=== PATIENT | female | born 1935 ===

== ENCOUNTER 2022-10-11 12:43 | Inpatient (IN) | payer MEDICARE, MEDICAID ==
[~2022-10-11] VITALS: Ht 144.8 cm; Wt 45.6 kg
[2022-10-11] VITALS (7 sets, daily range): BP systolic 93–130; BP diastolic 47–81
[2022-10-11] MEDS ORDERED: ONDANSETRON 4 MG/2 ML (SDV) Z0FRAN IVP PRN (13:15)
[2022-10-11] MEDS ORDERED: NITROGLYCERIN 0.4 MG SL TABS BTL 25'S SL PRN (13:15)
[2022-10-11] MEDS ORDERED: morphine INJ 4 MG/ML 1 ML (VIAL/SYRINGE) IV PRN (13:15)
--- NOTE | 2022-10-11 14:35 | History & Physical-Hospitalist ---
History of Present Illness HPI/Chief Complaint Patient is an 86-year-old female with past medical history of hypertension, tobacco abuse, hypothyroidism who presented to outside facility due to chest pain. She is deaf but her daughter is at bedside and interprets for her. She reports that a couple weeks ago she developed some chest pain but last night she had worsening of chest pain that started to radiate down her left arm. She was quite clammy as well throughout the night and just could not rest due to the pain. Family states that she was moaning and groaning throughout most of the night. Daughter tried to take her to the emergency room earlier today but she refused so they called her primary care doctor who recommended going to the emergency room and she was finally amenable to this. She describes it as a tightness and burning in her chest and she was given a GI cocktail and aspirin which helped improve the symptoms. Troponin was checked it was found to be elevated at 4 so she was transferred here for cardiac evaluation. Her only complaint to me now is that she is hungry and would like to eat. Her chest pain has since resolved. Source: patient Exam Limitations: language barrier (deaf) Date Seen 10/11/22 Time Seen by a Provider: 14:30 Attending Physician PCP Admitting Physician: Shirley Connolly MD Attending Physician: Shirley Connolly MD Referring Physician Date of Admission Oct 11, 2022 at 13:55 Home Medications & Allergies Home Medications Reviewed patient Home Medication Reconciliation performed by pharmacy medication reconciliations survey and mapping technician and/or nursing. Patients Allergies have been reviewed. Allergies Allergies Coded Allergies No Known Drug Allergies (Unverified10/11/22) Review of Systems Constitutional: see HPI Physical Exam Physical Exam Vital Signs Vital Signs - First Documented 10/11/22 10/12/22 14:00 00:08 Temp 36.5 Pulse 77 Resp 20 B/P (MAP) 130/81 (97) Pulse Ox 98 O2 Delivery Room Air O2 Flow Rate 2.00 Capillary Refill : Height, Weight, BMI Height: '" Weight: lbs. oz. kg; BMI Method: General Appearance: No Apparent Distress, Thin Respiratory: Lungs Clear, No Accessory Muscle Use Cardiovascular: Regular Rate, Rhythm, No Murmur Gastrointestinal: Normal Bowel Sounds, Non Tender, Soft Extremity: No Calf Tenderness, No Pedal Edema Neurologic/Psychiatric: Alert, Oriented x3, Other (deaf) Results Results/Procedures Labs Laboratory Tests 10/11/22 14:50 10/12/22 04:27 Patient resulted labs reviewed. Assessment/Plan Admission Diagnosis NSTEMI Admission Status: Inpatient Order (span 2 midnights) Reason for Inpatient Admission: see below Assessment and Plan NSTEMI Troponin 4 at outside facility Pain now resolved Cardiology consulted, appreciate recs NPO for potential cath Repeat troponin Monitor on telemetry Received ASA at outside facility HTN BP well controlled, trend hypothyroidism Continue home meds tobacco abuse Recommend cessation Diagnosis/Problems Diagnosis/Problems (1) NSTEMI (non-ST elevated myocardial infarction) SHIRLEY CONNOLLY MD Oct 11, 2022 14:35
[2022-10-11] MEDS ORDERED: LISI40TA9 PO (15:52)
[2022-10-11] MEDS ORDERED: LEVO50CA4 PO (15:52)
[2022-10-11] MEDS ORDERED: ACET325C7 PO (15:52)
--- NOTE | 2022-10-11 15:59 | Consultation-Cardiology ---
HPI-Cardiology Cardiology Consultation: Date of Consultation 10/11/22 Time Seen by a Provider: 15:30 Date of Admission 10-11-22 Attending Physician Admitting Physician Admitting Physician: Denita Connolly MD Attending Physician: Denita Connolly MD Consulting Physician Martell Gonzáles MD HPI: Chief Complaint: NSTEMI Ms. Clarke is an 86 yr old female admitted to [facility] from [facility] [place] She is deaf. Her daughter is at the bedside and is helping to sign in order to communicate with patient. She reports she began to have chest "squeezing" last night that radiated into her left arm. She reports feeling SOB, diaphoretic and generally not feeling well. The discomfort would come and go throughout the night. This morning she told her daughter about her chest pain and they took her to the ED at [facility] [place]. She is currently not reporting any chest pain. No LE swelling. No syncope or near syncope. Review of Systems-Cardiology Review of Systems Constitutional: No chills, No fever, No malaise Eyes: No vision change Ears/Nose/Throat: chronic hearing loss Respiratory: As described under HPI Cardiovascular: As described under HPI Gastrointestinal: constipation; No diarrhea, No nausea, No vomiting Genitourinary: No dysuria Musculoskeletal: no symptoms reported Skin: No rash on exposed areas, No ulcerations on exposed areas Psychiatric/Neurological: No anxiety, No depression, No seizure, No focal weakness, No syncope Hematologic: No bleeding abnormalities [id number]-Ppoghy Hx Patient Social History Smoking Status: Current Everyday Smoker Alcohol Use?: Yes Pt feels they are or have been: No Tobacco type used: Cigarettes Past Medical History PMH As described under Assessment. Family Medical History Family Medical History: She reports her father passed from "heart". Allergies and Home Medications Allergies Coded Allergies: No Allergy Information Available (Unverified , 10/11/22) Patient Home Medication List Acetaminophen (Tylenol) 325 Mg Capsule, 650 MG PO PRN, (Reported) Entered as Reported by: DHARMESH BORJA on 10/11/221551 Last Action: New Order Levothyroxine Sodium (Levothyroxine) 50 Mcg Capsule, 50 MCG PO DAILY, (Reported) Entered as Reported by: DHARMESH BORJA on 10/11/221551 Last Action: New Order Lisinopril (Lisinopril) 40 Mg Tablet, 40 MG PO DAILY, (Reported) Entered as Reported by: DHARMESH BORJA on 10/11/22 [id number] Last Action: New Order Physical Exam-Cardiology Physical Exam Vital Signs/I&O 10/11/22 10/11/22 14:00 14:05 Temp 36.5 Pulse 77 74 Resp 20 B/P (MAP) 130/81 (97) Pulse Ox 98 O2 Delivery Room Air Capillary Refill : Constitutional: AAO x 3, other (thin) HEENT: PERRL, other (deaf) Neck: No carotid bruit; carotid pulses are 2 + bilaterally Respiratory: No accessory muscle use, No respiratory distress; chest expansion is symmetric, chest is bilaterally symmetric, lungs clear to auscultation Cardiovascular: regular rate-rhythm; No JVD; S1 and S2 Gastrointestinal: No tender; soft, audible bowel sounds Extremities: no lower extremity edema bilateral Neurologic/Psychiatric: grossly intact (moves all extremities) Skin: No rash on exposed areas, No ulcerations on exposed areas Data Review Labs Laboratory Tests 10/11/22 14:30: Troponin I 11.474*H A/P-Cardiology Assessment/Admission Diagnosis NSTEMI Chronic deafness HTN Hypothyrodism Tobaccoism - cessation advised Discussion and Recomendations NSTEMI - treat with ASA, Plavix, Lovenox and BB - advise cardiac cath - discussed at length with patient and family (daughter at the bedside interpreting) - discussed procedure, risks, benefits and potential complications of cardiac cath with possible coronary intervention. They verbalize understanding and wish to proceed. We will schedule for tomorrow, sooner if indicated Advise smoking cessation Monitor lab Replace electrolytes as indicated Further recs will be based on her hospital course We would like to thank medical services for this consult JUAN DUFF Oct 11, 2022 15:59
[2022-10-11] MEDS ORDERED: ENOXAPARIN 100 MG/1 ML (LOVENOX) SYR SC SCH (16:00)
[2022-10-11] MEDS ORDERED: ENOXAPARIN 40 MG/0.4 ML (LOVENOX) SYR SC NR (16:15)
[2022-10-11] MEDS ORDERED: CLOPIDOGREL 75 MG (PLAVIX) TABLET PO NR ×2 (16:15→16:30)
[2022-10-11 16:17] LABS: INR 1.1 (0.8-1.4)
[2022-10-11 16:22] LABS: CALCIUM 9.4 MG/DL (8.5-10.1); CREATININE SERUM 0.98 MG/DL (0.60-1.30); POTASSIUM 3.6 MMOL/L (3.6-5.0)
--- NOTE | 2022-10-11 18:52 | Consultation-Cardiology ---
HPI-Cardiology Cardiology Consultation: Date of Consultation 10/11/22 Time Seen by a Provider: 16:30 Date of Admission Attending Physician Admitting Physician Admitting Physician: Denita Connolly MD Attending Physician: Denita Connolly MD Consulting Physician DUYEN DUMONT MD, MA, FACP, FACC, [facility], CCDS Physician requesting consult: Dr Connolly HPI: Chief Complaint: Reason for Card consult: NSTEMI Ms. Clarke is an 86 yr old female admitted to [facility] [place] [facility] [place] She is deaf. Her daughter is at the bedside and is helping to sign in order to communicate with patient. She reports she began to have chest "squeezing" last night that radiated into her left arm. She reports feeling SOB, diaphoretic and generally not feeling well. The discomfort would come and go throughout the night. This morning she told her daughter about her chest pain and they took her to the ED [place] [facility] [place] She is currently not reporting any chest pain. No LE swelling. No syncope or near syncope. Review of Systems-Cardiology Review of Systems Constitutional: No chills, No fever, No malaise Eyes: No vision change Ears/Nose/Throat: chronic hearing loss Respiratory: As described under HPI Cardiovascular: As described under HPI Gastrointestinal: constipation; No diarrhea, No nausea, No vomiting Genitourinary: No dysuria Musculoskeletal: no symptoms reported Skin: No rash on exposed areas, No ulcerations on exposed areas Psychiatric/Neurological: No anxiety, No depression, No seizure, No focal weakness, No syncope Hematologic: No bleeding abnormalities RPM-[id number]-Xhmjuz Hx Patient Social History Smoking Status: Current Everyday Smoker Alcohol Use?: Yes Pt feels they are or have been: No Tobacco type used: Cigarettes Past Medical History PMH As described under Assessment. Family Medical History Family Medical History: She reports her father passed from "heart". Allergies and Home Medications Allergies Coded Allergies: No Allergy Information Available (Unverified , 10/11/22) Patient Home Medication List Home Medication List Reviewed: Yes Acetaminophen (Tylenol) 325 Mg Capsule, 650 MG PO PRN, (Reported) Entered as Reported by: DHARMESH BORJA on 10/11/221551 Last Action: New Order Levothyroxine Sodium (Levothyroxine) 50 Mcg Capsule, 50 MCG PO DAILY, (Reported) Entered as Reported by: DHARMESH BORJA on 10/11/221551 Last Action: New Order Lisinopril (Lisinopril) 40 Mg Tablet, 40 MG PO DAILY, (Reported) Entered as Reported by: DHARMESH BORJA on 10/11/221551 Last Action: New Order Physical Exam-Cardiology Physical Exam Vital Signs/I&O 10/11/22 10/11/22 10/11/22 10/11/22 14:00 14:05 14:10 16:00 Temp 36.5 36.6 Pulse 77 74 72 Resp 20 23 B/P (MAP) 130/81 (97) 121/67 (85) Pulse Ox 98 98 98 O2 Delivery Room Air Room Air Room Air Capillary Refill : Constitutional: AAO x 3, other (thin) HEENT: PERRL, other (deaf) Neck: No carotid bruit; carotid pulses are 2 + bilaterally Respiratory: No accessory muscle use, No respiratory distress; chest expansion is symmetric, chest is bilaterally symmetric, lungs clear to auscultation Cardiovascular: regular rate-rhythm; No JVD; S1 and S2 Gastrointestinal: No tender; soft, audible bowel sounds Extremities: no lower extremity edema bilateral Neurologic/Psychiatric: grossly intact (moves all extremities) Skin: No rash on exposed areas, No ulcerations on exposed areas Data Review Labs Laboratory Tests 10/11/22 14:30: Troponin I 11.474*H 10/11/22 14:50: Prothrombin Time 14.0, INR Comment 1.1, Activated Partial Thromboplast Time 40H, Sodium Level 136, Potassium Level 3.6, Chloride Level 102, Carbon Dioxide Level 24, Anion Gap 10, Blood Urea Nitrogen 15, Creatinine 0.98, Estimat Glomerular Filtration Rate 56, BUN/Creatinine Ratio 15, Glucose Level 87, Calcium Level 9.4 A/P-Cardiology Assessment/Admission Diagnosis NSTEMI Chronic deafness HTN Hypothyrodism Tobaccoism - cessation advised Discussion and Recomendations NSTEMI - treat with ASA, Plavix, Lovenox and BB - advise cardiac cath - discussed at length with patient and family (daughter at the bedside interpreting) - discussed procedure, risks, benefits and potential complications of cardiac cath with possible coronary intervention. They verbalize understanding and wish to proceed. We will schedule for tomorrow, sooner if indicated Advise smoking cessation Monitor lab Replace electrolytes as indicated Further recs will be based on her hospital course We would like to thank medical services for this consult DUYEN DUMONT MD FACP FAC CCDS Oct 11, 2022 18:52
[2022-10-12] VITALS (12 sets, daily range): BP systolic 73–130; BP diastolic 43–63
[2022-10-12 04:58] LABS: HEMATOCRIT 38 % (35-52); HEMOGLOBIN 12.7 g/dL (11.5-16.0); MEAN CORPUSCULAR HEMOGLOBIN 32 pg (25-34); MEAN CORPUSCULAR HGB CONC 33 g/dL (32-36); MEAN CORPUSCULAR VOLUME 96 fL (80-99); MEAN PLATELET VOLUME 9.5 fL (9.0-12.2); PLATELET COUNT 318 10^3/uL (130-400); WHITE BLOOD COUNT 9.4 10^3/uL (4.3-11.0)
[2022-10-12 05:23] LABS: POTASSIUM 3.9 MMOL/L (3.6-5.0)
[2022-10-12 05:24] LABS: CALCIUM 8.9 MG/DL (8.5-10.1)
[2022-10-12 05:29] LABS: CREATININE SERUM 0.92 MG/DL (0.60-1.30)
[2022-10-12] MEDS: NS IV 1000 ML 1,000 ML IV SCH ×3 (05:30→23:45)
[2022-10-12] MEDS ORDERED: NS IV 1000 ML 0 ML ONE (07:44)
[2022-10-12] MEDS ORDERED: HEParin (CATH LAB) 2,000 ML IV ONE (07:44)
[2022-10-12] MEDS ORDERED: LIDOCAINE 1% INJ 20 ML VIAL ONE (07:44)
[2022-10-12] MEDS: ASPIRIN E.C. 81 MG (ECOTRIN) TAB PO SCH (08:54)
[2022-10-12] MEDS: CLOPIDOGREL 75 MG (PLAVIX) TABLET PO SCH (08:54)
[2022-10-12] MEDS ORDERED: IBUP-30 PO (10:38)
[2022-10-12] MEDS ORDERED: LEVO50TA6 PO (10:38)
--- NOTE | 2022-10-12 11:01 | Progress Note - Hospitalist ---
Subjective HPI/CC On Admission Date Seen by Provider: Oct 12, 2022 Patient is an 86-year-old female with past medical history of hypertension, tobacco abuse, hypothyroidism who presented to outside facility due to chest pain. She is deaf but her daughter is at bedside and interprets for her. She reports that a couple weeks ago she developed some chest pain but last night she had worsening of chest pain that started to radiate down her left arm. She was quite clammy as well throughout the night and just could not rest due to the pain. Family states that she was moaning and groaning throughout most of the night. Daughter tried to take her to the emergency room earlier today but she refused so they called her primary care doctor who recommended going to the emergency room and she was finally amenable to this. She describes it as a tightness and burning in her chest and she was given a GI cocktail and aspirin which helped improve the symptoms. Troponin was checked it was found to be elevated at 4 so she was transferred here for cardiac evaluation. Her only complaint to me now is that she is hungry and would like to eat. Her chest pain has since resolved. Subjective/Events-last exam Patient reports doing well today. No further chest pain. Daughter is at bedside helping to interpret. Echo is to be done. Plan is for cath today. Objective Exam Vital Signs Vital Signs Date Time Temp Pulse Resp B/P (MAP) Pulse Ox O2 Delivery O2 Flow Rate FiO2 10/12/22 08:00 96 Room Air 10/12/22 07:51 58 10/12/22 07:48 36.0 18 112/56 (74) 10/12/22 06:19 1.00 Capillary Refill : General Appearance: No Apparent Distress, WD/WN Respiratory: Lungs Clear, No Respiratory Distress Cardiovascular: Regular Rate, Rhythm, No Murmur Neurologic/Psychiatric: Alert, Oriented x3, Other (deaf) Results/Procedures Lab Laboratory Tests 10/11/22 14:50 10/12/22 04:27 Patient resulted labs reviewed. Assessment/Plan Assessment and Plan Assess & Plan/Chief Complaint NSTEMI Troponin up to 11 Pain still resolved Cardiology consulted, appreciate recs Cath today Monitor on telemetry Continue ASA/Plavix HTN BP well controlled, trend hypothyroidism Continue home meds when able to take PO tobacco abuse Recommend cessation Diagnosis/Problems Diagnosis/Problems (1) NSTEMI (non-ST elevated myocardial infarction) SHIRLEY CARPENTER MD Oct 12, 2022 11:01
[2022-10-12] MEDS ORDERED: ACETAMINOPHEN 325 MG TABLET PO PRN (11:15)
[2022-10-12] MEDS ORDERED: ENOXAPARIN 40 MG/0.4 ML (LOVENOX) SYR SC SCH (12:00)
[2022-10-12] MEDS ORDERED: fentaNYL INJ 100 MCG/2 ML AMP ONE (12:15)
[2022-10-12] MEDS ORDERED: MIDAZOLAM 5 MG/5 ML (VERSED) VIAL ONE (12:15)
[2022-10-12] MEDS ORDERED: HEParin 1000 UNIT/ML (10ML VIAL) FOR BOLUS ONE (13:07)
--- NOTE | 2022-10-12 13:45 | Cardiac Cath Report ---
CARDIAC CATHETERIZATION DATE OF PROCEDURE: 10-12-22 INDICATION: Ac NSTEMI HISTORY: The patient is a 86 year old female with acute NSTEMI PROCEDURES PERFORMED: 1. Cor angio 2. LHC PROCEDURE DESCRIPTION: After informed consent and in the fasting state, left heart catheterization was performed through the R femoral artery utilizing a 6 Vietnamese system by percutaneous approach. JL3.5 for LCA angio. JR4 for RCA angio. Pigtail for LHC and LV angio. All catheters were exchanged over a guidewire. HEMODYNAMICS: LVEDP 13 mmHg, no significant pressure gradient on pull back across the aortic valve CORONARY ANGIOGRAPHY: Cor calcium present Left main coronary artery: Ok Left anterior descending coronary artery: Long, 90-95% mid-vessel stenosis in a relatively small caliber and tortuous vessel (cockscrew tortuosity of mid and distal LAD) Left circumflex coronary artery: Co dominant, 50% mid Right coronary artery: Codominant with tandem, up to 95% proximal long lesions with MARLENY-2 distal flow LV ANGIOGRAPHY LVEF 65% without distinct wall motion abnormality in the VELAZQUEZ projection IMPRESSION: 1. Multivessel CAD. Left main coronary artery: Ok. Left anterior descending coronary artery: Long, 90-95% mid-vessel stenosis in a relatively small caliber and tortuous vessel (cockscrew tortuosity of mid and distal LAD). Left circumflex coronary artery: co-dominant, 50% mid. Right coronary artery: co- dominant and with two tandem, up to 95% proximal long lesions with MARLENY-2 distal flow 2. LVEDP 13 mmHg 3. LVEF 65% PLAN I discussed with with her daughter who interprets for her (patient is deaf) and with whom she lives and who is her primary care provider. All options were reviewed, including surgical, percutaneous, and medical. Daughter refuses surgery and has also opted against PCI. We did offer transfer to a larger facility with surgical back up for high-risk PCI, but the daughter has chosen medical therapy only. She will discuss all issues with her mother. If they change their mind, we will consider PCI. DUYEN DUMONT MD [facility] CCDS Oct 12, 2022 13:45
[2022-10-12] MEDS ORDERED: PATIENT MAY USE OWN MEDS, ALL PO SCH (14:00)
--- NOTE | 2022-10-12 14:11 | Progress Note - Cardiology ---
Cardiology SOAP Progress Note Subjective: No cp or palp or syncope or shortness of breath No n/v/d No focal weakness Gen weakness No swelling of the legs Objective: I&O/Vital Signs 10/12/22 10/12/22 10/12/22 10/12/22 04:13 06:16 06:17 06:19 Temp 35.7 Pulse 61 Resp 20 B/P (MAP) 95/54 (68) Pulse Ox 99 99 O2 Delivery Nasal Cannula Nasal Cannula Nasal Cannula Nasal Cannula O2 Flow Rate 2.00 2.00 1.00 1.00 10/12/22 10/12/22 10/12/22 10/12/22 07:48 07:51 08:00 11:50 Temp 36.0 36.9 Pulse 53 58 66 Resp 18 18 B/P (MAP) 112/56 (74) 130/59 (82) Pulse Ox 97 96 93 O2 Delivery Room Air Room Air Room Air 10/12/22 14:00 Pulse 58 Resp 16 B/P (MAP) 73/44 (54) Pulse Ox 93 O2 Delivery Room Air 10/12/22 00:00 Intake Total 300 ml Balance 300 ml Constitutional: AAO x 3, other (thin) Respiratory: No accessory muscle use, No respiratory distress; chest expansion is symmetric, chest is bilaterally symmetric, lungs clear to auscultation Cardiovascular: regular rate-rhythm; No JVD; S1 and S2 Gastrointestional: No tender; soft, audible bowel sounds Extremities: no lower extremity edema bilateral Neurologic/Psychiatric: grossly intact (moves all extremities) Skin: No rash on exposed areas, No ulcerations on exposed areas Results/Procedures: Labs Laboratory Tests 10/11/22 14:30: Troponin I 11.474*H 10/11/22 14:50: Prothrombin Time 14.0, INR Comment 1.1, Activated Partial Thromboplast Time 40H, Sodium Level 136, Potassium Level 3.6, Chloride Level 102, Carbon Dioxide Level 24, Anion Gap 10, Blood Urea Nitrogen 15, Creatinine 0.98, Estimat Glomerular Filtration Rate 56, BUN/Creatinine Ratio 15, Glucose Level 87, Calcium Level 9.4 10/12/22 04:27: Sodium Level 136, Potassium Level 3.9, Chloride Level 103, Carbon Dioxide Level 24, Anion Gap 9, Blood Urea Nitrogen 18, Creatinine 0.92, Estimat Glomerular Filtration Rate 61, BUN/Creatinine Ratio 20, Glucose Level 85, Calcium Level 8.9, White Blood Count 9.4, Red Blood Count 4.00, Hemoglobin 12.7, Hematocrit 38, Mean Corpuscular Volume 96, Mean Corpuscular Hemoglobin 32, Mean Corpuscular Hemoglobin Concent 33, Red Cell Distribution Width 13.0, Platelet Count 318, Mean Platelet Volume 9.5, Triglycerides Level 104, Cholesterol Level 195, LDL Cholesterol Direct 142H, VLDL Cholesterol 21, HDL Cholesterol 50 A/P: Assessment: NSTEMI Card cath on 23: 1. Multivessel CAD. Left main coronary artery: Ok. Left anterior descending coronary artery: Long, 90-95% mid-vessel stenosis in a relatively small caliber and tortuous vessel (cockscrew tortuosity of mid and distal LAD). Left circumflex coronary artery: co-dominant, 50% mid. Right coronary artery: co-dominant and with two tandem, up to 95% proximal long lesions with MARLENY-2 distal flow 2. LVEDP 13 mmHg 3. LVEF 65% Chronic deafness HTN Hypothyrodism Tobaccoism - cessation advised Plan: I discussed cath results with her daughter who interprets for her (patient is deaf) and with whom she lives and who is her primary care provider. All options were reviewed, including surgical, percutaneous, and medical. Daughter refuses surgery and has also opted against PCI (given high risk). We did offer transfer to a larger facility with surgical back up for high-risk PCI, but the daughter has chosen medical therapy only. She has communicated with her mother who concurs. She will discuss all issues further with her mother. If they change their mind, we will consider PCI. Continue DAPT and enoxaparin Continue beta-sharon if tolerated Advised to refrain from smoking Monitor labs DUYEN DUMONT MD FACP [facility] CCDS Oct 12, 2022 14:11
[2022-10-12] MEDS: ENOXAPARIN 60 MG/0.6 ML (LOVENOX) SYR SC SCH (18:09)
[2022-10-13] MEDS: NS IV 1000 ML 1,000 ML IV SCH ×4 (02:54→22:00)
[2022-10-13 04:44] VITALS: BP 116/61
[2022-10-13] MEDS: LEVOTHYROXINE 50 MCG (LEVOTHROID) TAB PO SCH (06:45)
[2022-10-13 07:53] VITALS: BP 111/75
[2022-10-13] MEDS: CLOPIDOGREL 75 MG (PLAVIX) TABLET PO SCH (09:48)
[2022-10-13] MEDS: ASPIRIN E.C. 81 MG (ECOTRIN) TAB PO SCH (09:48)
--- NOTE | 2022-10-13 10:35 | Progress Note - Cardiology ---
Cardiology SOAP Progress Note Subjective: No cp or palp or syncope No shortness of breath at rest No nv/d No focal weakness Gen weakness and malaise present Objective: I&O/Vital Signs 10/12/22 10/13/22 10/13/22 10/13/22 23:18 01:00 04:44 07:00 Temp 36.2 35.7 Pulse 61 60 64 59 Resp 19 19 B/P (MAP) 101/53 (69) 116/61 (79) Pulse Ox 91 95 O2 Delivery Room Air Room Air 10/13/22 10/13/22 07:53 08:00 Temp 36.4 Pulse 72 Resp 15 B/P (MAP) 111/75 (87) Pulse Ox 95 96 O2 Delivery Room Air Room Air 10/13/22 00:00 Intake Total 690 ml Balance 690 ml Constitutional: AAO x 3, other (thin) Respiratory: No accessory muscle use, No respiratory distress; chest expansion is symmetric, chest is bilaterally symmetric, lungs clear to auscultation Cardiovascular: regular rate-rhythm; No JVD; S1 and S2 Gastrointestional: No tender; soft, audible bowel sounds Extremities: no lower extremity edema bilateral Neurologic/Psychiatric: grossly intact (moves all extremities) Skin: No rash on exposed areas, No ulcerations on exposed areas Results/Procedures: Labs Microbiology 10/11/22 MRSA Screen - Final, Complete MRSA not isolated A/P: Assessment: NSTEMI Card cath on 10-12-22: 1. Multivessel CAD. Left main coronary artery: Ok. Left anterior descending coronary artery: Long, 90-95% mid-vessel stenosis in a relatively small caliber and tortuous vessel (cockscrew tortuosity of mid and distal LAD). Left circumflex coronary artery: co-dominant, 50% mid. Right coronary artery: co-dominant and with two tandem, up to 95% proximal long lesions with MARLENY-2 distal flow 2. LVEDP 13 mmHg 3. LVEF 65% Chronic deafness HTN Hypothyrodism Tobaccoism - cessation advised Plan: I again discussed her cath results with her and her family. Her two daughter interpreted for us for her to understand all issues. She wishes to be managed medically only. We are continuing DAPT and BB. Statin has been added. Plan to continue enoxaparin for another 24-48 hours Advised to refrain from smoking Monitor labs DUYEN DUMONT MD FACP [facility]S Oct 13, 2022 10:35
[2022-10-13 12:00] VITALS: BP 139/68
--- NOTE | 2022-10-13 14:23 | Progress Note - Hospitalist ---
Subjective HPI/CC On Admission Date Seen by Provider: Oct 13, 2022 Patient is an 86-year-old female with past medical history of hypertension, tobacco abuse, hypothyroidism who presented to outside facility due to chest pain. She is deaf but her daughter is at bedside and interprets for her. She reports that a couple weeks ago she developed some chest pain but last night she had worsening of chest pain that started to radiate down her left arm. She was quite clammy as well throughout the night and just could not rest due to the pain. Family states that she was moaning and groaning throughout most of the night. Daughter tried to take her to the emergency room earlier today but she refused so they called her primary care doctor who recommended going to the emergency room and she was finally amenable to this. She describes it as a tightness and burning in her chest and she was given a GI cocktail and aspirin which helped improve the symptoms. Troponin was checked it was found to be elevated at 4 so she was transferred here for cardiac evaluation. Her only complaint to me now is that she is hungry and would like to eat. Her chest pain has since resolved. Subjective/Events-last exam Pt able to speak some. States she is feeling good and asks if she can go home. Somewhat hard to understand but most is intelligble today. Daughter expresses concern about urine smell so offered UA. Daughter also stated she just wanted to try medical management and we discussed palliative care bridge or hospice. She stated her neighbor is a hospice nurse and would be interested in that. When social work returned to bring pamphlets she declined them. Other family members have since arrived and are disputing the [facility] paperwork. [place] legal assistance has been requested to help with interpretation. Objective Exam Vital Signs Vital Signs Date Time Temp Pulse Resp B/P (MAP) Pulse Ox O2 Delivery O2 Flow Rate FiO2 10/13/22 12:32 78 10/13/22 12:00 36.6 15 139/68 (91) 97 Room Air 10/12/22 20:46 1.00 Capillary Refill : Less Than 3 Seconds General Appearance: No Apparent Distress, Chronically ill Respiratory: Lungs Clear, No Respiratory Distress Cardiovascular: Regular Rate, Rhythm Gastrointestinal: Normal Bowel Sounds, Soft Neurologic/Psychiatric: Alert, Oriented x3 Results/Procedures Lab Patient resulted labs reviewed. Assessment/Plan Assessment and Plan Assess & Plan/Chief Complaint NSTEMI Cath done yesterday- recommendation for transfer for high risk PCI or even CABG- family and presumed DPOA declined at that time Cardiology consulted, appreciate recs Monitor on telemetry Continue ASA/Plavix/Lovenox/Metoprolol/Lipitor Echo shows EF of 60% Foul smell urine UA ordered HTN BP well controlled, trend hypothyroidism Continue home meds tobacco abuse Recommend cessation Diagnosis/Problems Diagnosis/Problems (1) NSTEMI (non-ST elevated myocardial infarction) SHIRLEY CARPENTER MD Oct 13, 2022 14:23
[2022-10-13 16:00] VITALS: BP 154/96
[2022-10-13] MEDS: ENOXAPARIN 60 MG/0.6 ML (LOVENOX) SYR SC SCH (18:27)
[2022-10-14] VITALS: BP 128/74
[2022-10-14 04:00] VITALS: BP 114/58
[2022-10-14] MEDS: NS IV 1000 ML 1,000 ML IV SCH (06:00)
[2022-10-14] MEDS: LEVOTHYROXINE 50 MCG (LEVOTHROID) TAB PO SCH (06:41)
[2022-10-14 08:00] VITALS: BP 114/69
[2022-10-14] MEDS: CLOPIDOGREL 75 MG (PLAVIX) TABLET PO SCH (08:09)
[2022-10-14] MEDS: ASPIRIN E.C. 81 MG (ECOTRIN) TAB PO SCH (08:09)
--- NOTE | 2022-10-14 10:06 | Discharge Summary ---
Diagnosis/Chief Complaint Date of Admission Oct 11, 2022 at 13:55 Date of Discharge Admission Diagnosis NSTEMI Primary Care Discharge Diagnosis (1) NSTEMI (non-ST elevated myocardial infarction) Discharge Summary Discharge Physical Exam Allergies: Coded Allergies: No Known Drug Allergies (Unverified , 10/11/22) Vitals & I&Os Vital Signs Date Time Temp Pulse Resp B/P (MAP) Pulse Ox O2 Delivery O2 Flow Rate FiO2 10/14/22 08:00 36.4 68 16 114/69 (84) 95 Room Air 10/12/22 20:46 1.00 General Appearance: No Apparent Distress, WD/WN Cardiovascular: Regular Rate, Rhythm, No Murmur Gastrointestinal: Normal Bowel Sounds, Soft Neurologic/Psychiatric: Alert, Oriented x3 Hospital Course Patient was admitted to the hospital secondary to NSTEMI. She was seen by cardiology and underwent cardiac cath. 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 Family decided not to pursue this route. Instead maximum medical therapy was started. There were issues regarding discharge plan and placement as 2 daughters believe them to have DPOA. [place] [employer] was engaged. Ultimately after conversations with the patient with an historical interpreter as she is deaf patient was oriented x4 and requested to discharge with her daughter Mireya. She was discharged in stable and improved condition to follow-up with primary care and cardiology. Daughter is moving her to [facility] and plans to e stablish her with physicians there soon. Prescriptions were sent to [facility] pharmacy at their request. Labs (last 24 hrs) Microbiology 10/11/22 MRSA Screen - Final, Complete MRSA not isolated Patient resulted labs reviewed. Discussion & Recommendations Discharge Planning: >30 minutes discharge planning Discharge Home Medications: Active Scripts Active Cephalexin 500 Mg Tablet 500 Mg PO BID Metoprolol Succinate 25 Mg Tab.er.24h 25 Mg PO DAILY Atorvastatin Calcium 80 Mg Tablet 80 Mg PO HS Clopidogrel (Clopidogrel Bisulfate) 75 Mg Tablet 75 Mg PO DAILY Aspirin EC (Aspirin) 81 Mg Tablet.dr 81 Mg PO DAILY Levothyroxine Sodium 50 Mcg Tablet 50 Mcg PO DAILY Reported Advil (Ibuprofen) 200 Mg Tablet 400 Mg PO Q8H PRN Tylenol (Acetaminophen) 325 Mg Capsule 650 Mg PO Q8H PRN Instructions to patient/family Please see electronic discharge instructions given to patient. SHIRLEY CARPENTER MD Oct 14, 2022 10:06
[2022-10-14] MEDS ORDERED: LEVO50TA6 PO (10:15)
[2022-10-14] MEDS ORDERED: MTP25TSR PO (10:15)
[2022-10-14] MEDS ORDERED: CLOP75TA28 PO (10:15)
[2022-10-14] MEDS ORDERED: ATOR80TA76 PO (10:15)
[2022-10-14] MEDS ORDERED: ASPI-1238 PO (10:15)
--- NOTE | 2022-10-14 10:15 | Discharge Inst-Simple/Standard ---
Discharge Inst-Standard Discharge Medications New, Converted or Re-Newed RX: Transmitted to Pharmacy Patient Instructions/Follow Up Plan of Care/Instructions/FU: Please continue to take your medications as written. Please follow up with your primary care doctor to follow up this hospital stay. Activity as Tolerated: Yes Discharge Diet: Low Sodium Diet Return to The Hospital For: Chest pain, shortness of breath, fever, weakness, if you feel you are getting worse. SHIRLEY CARPENTER MD Oct 14, 2022 10:15
[2022-10-14 10:24] LABS: BILIRUBIN,URINE NEGATIVE (NEGATIVE); CLARITY,URINE CLEAR; COLOR,URINE YELLOW; GLUCOSE, URINE (UA) NEGATIVE (NEGATIVE); KETONES,URINE NEGATIVE (NEGATIVE); LEUKOCYTE ESTERASE ,URINE 3+ (NEGATIVE); NITRITE,URINE POSITIVE (NEGATIVE); PH,URINE 5.5 (5-9); PROTEIN,URINE NEGATIVE (NEGATIVE)
[2022-10-14 10:31] LABS: BACTERIA,URINE LARGE /HPF; RBC,URINE RARE /HPF; WBC,URINE 25-50 /HPF
[2022-10-14] MEDS ORDERED: CEPH500T PO (12:21)
[2022-10-14] MEDS ORDERED: cefTRIAXone IV/IM 1,000 MG in NS (IVPB) 50 ML IV SCH (13:00)
== END 2022-10-14 11:55 | disposition home or self-care (01) | DRG 282 ==
LOC: CSD 13:55
PROVIDERS: ADMIT Family Medicine; ATTEND Family Medicine
PROC: 4A023N7 Measurement of Cardiac Sampling and Pressure, Left Heart, Percutaneous Approach (ICD-10-PCS; principal; 2022-10-12)
PROC: B2111ZZ Fluoroscopy of Multiple Coronary Arteries using Low Osmolar Contrast (ICD-10-PCS; 2022-10-12)
PROC: B2151ZZ Fluoroscopy of Left Heart using Low Osmolar Contrast (ICD-10-PCS; 2022-10-12)
DX: I21.4 Non-ST elevation (NSTEMI) myocardial infarction (principal); I10 Essential (primary) hypertension; E03.9 Hypothyroidism, unspecified; F17.210 Nicotine dependence, cigarettes, uncomplicated; I25.10 Atherosclerotic heart disease of native coronary artery without angina pectoris; H91.90 Unspecified hearing loss, unspecified ear
CPT/HCPCS: 36415; 80048; 80061; 81000; 84484; 85027; 85610; 85730; 87077; 87081; 87088; 93005; 93306; 93458